=== PATIENT | female | born 1975 | race Caucasian/White ===

== ENCOUNTER → 2020-07-02 16:20 | Outpatient (CLI) | payer BC, SELFPAY ==
--- NOTE | ~2020-07-02 | MR_ITS ---
EXAMINATION: MR knee RT wo con DATE: 07/02/2020 17:53 INDICATION: Right knee pain. TECHNIQUE: Magnetic resonance imaging (MRI) of the right knee was performed without intravenous contr ast. Sequences included axial PD-weighted FS FSE, coronal PD-weighted FSE and PD-weighted FS FSE, sag ittal PD-weighted FSE, and sagittal T2-weighted FS FSE. COMPARISON: Right knee MRI 12/13/2017 FINDINGS: Medial compartment: Medial meniscus is normal. There is cartilage surface irregularity of femoral condyle involving the c entral articular surface. There is cartilage surface irregularity of tibial condyle involving the boy tral articular surface. Lateral compartment: Lateral meniscus is normal. Lateral compartment cartilage is normal. Patellofemoral compartment: There is deep partial thickness cartilage loss of patellar medial and lateral facets with mild subcho ndral edema-like marrow signal intensity. There is cartilage surface irregularity of trochlea. Ligaments and tendons: Anterior cruciate ligament is normal. There is a partial tear of posterior cruciate ligament. Medial collateral ligament is normal. There are changes of prior sprain of fibular collateral ligament leonel cterized by increased signal intensity proximally. There is mild patellar tendinopathy. Fluid: There is a small knee joint effusion. There is trace fluid in a Haddad's cyst. IMPRESSION: 1. Moderate chondrosis of patellofemoral compartment and mild chondrosis of medial compartment. 2. Partial tear of posterior cruciate ligament. 3. Small knee joint effusion. Reviewed, dictated and finalized at location A. ICE EDUCATOR IMPRESSION: 1. Moderate chondrosis of patellofemoral compartment and mild chondrosis of med ial compartment. 2. Partial tear of posterior cruciate ligament. 3. Small knee joint effusion.
== END ==
DX: M25.461 Effusion, right knee (principal); S83.521A Sprain of posterior cruciate ligament of right knee, initial encounter; X58.XXXA Exposure to other specified factors, initial encounter
CPT/HCPCS: 73721

== ENCOUNTER → 2020-10-29 09:50 | Outpatient (CLI) | payer BC, SELFPAY ==
--- NOTE | ~2020-10-29 | CT_ITS ---
EXAMINATION: CT abdomen pelvis w con EXAM DATE: 10/29/2020 10:20 INDICATION: Right lower quadrant tenderness / hematochezia. TECHNIQUE: Spiral CT of the abdomen and pelvis was performed following intravenous injection of 100 m L Omnipaque 350. Axial, coronal and sagittal images of the abdomen and pelvis were reviewed. The do se-length product (DLP) for this examination was 661.26 mGy-cm. The exposure was tailored according to patient size (auto mA exposure control), and iterative reconstruction (ASIR) was used as additiona l dose reduction technique. There is no prior study for comparison. FINDINGS: The liver, spleen, adrenal glands and pancreas are unremarkable. Gallbladder not identifie d, patient likely has had cholecystectomy. Portal and splenic veins are patent. Kidneys enhance sym metrically. There is no hydronephrosis. The uterus is unremarkable. The bladder is unremarkable. There is no retroperitoneal or pelvic lymphadenopathy. The appendix is not positively visualized, possible appendectomy. There is no pericecal inflammatory change to suggest appendicitis. The stomach and small bowel are unremarkable. There is moderate am ount of colonic stool. No free intraperitoneal gas. The heart is normal in size. There are no pe ricardial or pleural effusions. The lung bases are unremarkable. There are no osteoblastic or osteo lytic lesions identified. IMPRESSION: Moderate amount of colonic stool. Reviewed, dictated and finalized at location B.
== END ==
PROVIDERS: Visit Provider Nurse Practitioner
DX: R10.31 Right lower quadrant pain (principal); K92.1 Melena
CPT/HCPCS: 74177; Q9967

== ENCOUNTER 2021-07-09 13:26 | Outpatient (CLI) | payer BC, SELFPAY ==
--- NOTE | 2021-07-09 13:41 | ECG_ITS ---
Measurements Intervals [place] Rate: 65 P: 65 HI: 146 QRS: 60 QRSD: 92 T: 38 QT: 377 QTc: 394 Interpretive Statements SINUS RHYTHM WITH SINUS ARRHYTHMIA NORMAL ECG NO PREVIOUS ECG AVAILABLE FOR COMPARISON Electronically Signed On 07-09-2021 16:20:17 CDT by Delvin Treviño M.D.
== END 2021-07-09 13:27 | disposition home or self-care (01) ==
LOC: ANHSURGERY 13:29
PROVIDERS: PCP Nurse Practitioner Adult Health; Visit Provider Obstetrics & Gynecology
DX: N92.6 Irregular menstruation, unspecified (principal); E78.00 Pure hypercholesterolemia, unspecified
CPT/HCPCS: 36415; 86850; 86900; 86901; 93005

== ENCOUNTER 2021-07-14 00:15 | Day surgery (SDC) | payer BC, SELFPAY ==
[2021-07-02 16:31] VITALS: BMI 27.9
--- NOTE | 2021-07-02 17:25 | PC.NURSE ---
Report to the Outpatient Waiting Room, entrance under the green pavilion located off [facility], at 1000 on 07-14-21. OR Time: 1200. - You and your visitor will be asked a series of questions to screen for COVID 19 for your protection. - A mask is required within the hospital. Preoperative COVID Testing Requirements: No COVID Test needed if: (proof is required; if not received patient will have Rapid Test prior to entry) - Patient has received COVID Vaccine at least 14 days prior to procedure date or - Patient has positive COVID test result within last 90 days of surgery date. COVID Test needed if above criteria is not met If not COVID vaccinated a COVID test must be conducted within 72 hours of surgery and patient is asked to isolate self from time of testing until procedure. You will go to the [email or web address] for your COVID testing. The [email or web address] site is located at the corner of [address] [facility]. You will only be called if COVID results are positive and your surgeon may reschedule your elective surgery date. Patients may have clear liquids (water, carbonated beverages, clear teas, apple juice) until 3 hours prior to surgery with a maximum of 20 ounces. 0900 - No food from midnight until time of surgery - Infants may have breast milk until 4 hours before surgery, formula 6 hours prior to surgery. - Children will be allowed to drink immediately following surgery. If applicable, please bring a bottle or sippy cup to assist with drinking. Juice, water, soda, and popsicles are readily available. For infants on formula, please bring formula the day of surgery. Pacifiers are allowed. Take the following medications with a SIP of water the morning of surgery: Citalopram Medications to discontinue per physician: vitamins and supplements Date to take last dose: 07-11-21 Please no make-up, nail angolan, hairspray, perfume, deodorant, or body powder the day of surgery. No jewelry (including any body piercings) or valuables the day of surgery, leave them at home. Please take a shower or bath the night before, or the morning of, surgery with an antibacterial soap. Wear comfortable, loose fitting clothing. Children are encouraged to wear pajamas. - Jewelry must be removed prior to entering the operating room. Rings and piercings that are not removed may be cut off. - The hospital will not accept responsibility for valuables. - Please leave all valuables, including medications, at home the day of surgery. If you are going home after surgery, a licensed mail truck driver must drive you home. - NO public transportation without another adult. - We recommend that an adult stay with you for 24 hours following discharge. - We also recommend that you do not drive, make important decision, drink alcoholic beverages, or take any drugs that were not prescribed by your health care provider for at least 24 hours after your discharge time. For Pediatric surgeries, we recommend two adults accompany the child home (only one inside the building at this time). One visitor will be allowed to accompany the patient into the hospital. Patients visitor will be instructed to remain with patient at all times or leave the building. We will allow the visitor to come back to the postoperative area when patient is ready. Follow any additional instructions given to you from your surgeon. Telephone instructions given to Betzy Elder and asked if any additional questions and then verbalized understanding. Patient advised to call surgeon office or pre surgery nurse liaison [phone] if any additional questions.
[2021-07-14] VITALS (11 sets, daily range): BP systolic 104–132; BP diastolic 60–83; PULSE 67–92; RESP 10–18; TEMP 36.2–36.9; O2SAT 92–100
[2021-07-14] MEDS: LACTATED RINGERS 1,000 ML 30 ML IV CONT ×2 (10:50→14:05)
[2021-07-14] MEDS: ACETAMINOPHEN 500 MG TABLET 1000 MG PO (10:51)
[2021-07-14] MEDS: KETOROLAC 15 MG/ML VIAL (*BKC) IV PUSH (10:51)
--- NOTE | 2021-07-14 11:18 | P.PNAN_ITS ---
Anes - Initial Pre Proc Eval Procedure: Operation Date: 07/14/21 12:00 Proposed Procedures p Robotic Assisted Total Vaginal Hysterectomy with Bilateral Salpingectomy - Constantin Naranjo MD Date/Time: 07/14/21 11:18 Surgeon: Constantin Naranjo MD Pre Op Diagnosis: failed ablation,irregular bleeding,dysmenorrhea, Patient Data Age: 45 Gender: F Height: 1.78 m Weight: 88.8 kg Last Vital Signs Temp 36.5 C 07/14/21 10:33 Pulse 74 07/14/21 10:33 Resp 18 07/14/21 10:33 BP 132/77 07/14/21 10:33 Pulse Ox 100 07/14/21 10:33 Allergies Allergy/AdvReac Type Severity Reaction Status Date / Time levofloxacin [From Levaquin] Allergy Intermediate Dyspnea / Verified 07/14/21 10:56 SOB lisinopril Allergy Intermediate Chest Pain Verified 07/14/21 10:56 Penicillins Allergy Unknown Unknown Verified 07/14/21 10:56 Home Medications Medication Instructions Recorded Confirmed Type atorvastatin 20 mg PO HS 07/02/21 07/14/21 History cholecalciferol (vitamin D3) 100 mcg PO DAILY 07/02/21 07/14/21 History [Vitamin D3] citalopram 40 mg PO DAILY 07/02/21 07/14/21 History qwsjahaoxyja-bmy-pfvp-FA-vit K 1 tablet PO DAILY 07/02/21 07/14/21 History [Adults Multivitamin] Patient hx anesthesia problems: post op nausea/vomiting Family hx anesthesia problems: none Results Review: All pre-operative results and documents have been reviewed as part of the pre-operative evaluation. [facility] Past Medical History Medical History Anxiety Depression Hyperlipidemia SVT (supraventricular tachycardia) Surgical History Surgical History S/P ablation operation for arrhythmia Family History Family History Mother Depression Family history of elevated blood lipids Other Hypertension Social History Social History Smoking packs per day: 0.5 Smoking cigarettes per day: 10.0 Years smoked: 12 Smoking pack-years: 6.00 Smoking status: Former smoker Tobacco type: cigarettes and e-cigarettes/vaping Smoking end date: 04/24/17 Alcohol intake: former Alcohol use details: socially Substance use: current Substance use type: marijuana Last use: t-1 Living arrangements: with family Spiritual care concerns: No Anes - Eval Final PreProcedure Day of Procedure 07/14/21 11:18 Patient weight: overweight Heart: regular rate and rhythm Lungs: clear to auscultation Airway: Mallampati scale class II Neurological: alert and oriented Last oral intake: >/= 8 hours ASA classification: III Emergent: no Anesthetic plan: proceed Anesthesia type and monitoring: general ETT and standard monitoring Results Review: All pre-operative results and documents have been reviewed as part of the pre-operative evaluation. Informed Consent: The patient's anesthetic plan and its attendant risks and benefits were discussed with the patient/family/POA. Questions were solicited and answers provided to the satisfaction of the patient/family/POA.
--- NOTE | 2021-07-14 11:54 | PM.IMHP ---
H&P: HPI History of Present Illness Date/Time: 07/14/21 11:54 45 y/o who has had an endometrial ablation. Her has had a vasectomy. She had gone several years with no bleeding, but now has monthly menses. The flow is light, but the cramping has been worsening. Ultrasound exam shows an inhomogeneous myometrium. She desires definitive management with hysterectomy. Chief Complaint: Pain Review of Systems Review of Systems: All systems reviewed & are unremarkable except as noted in HPI and below PMFSH Past Medical History Medical History (Updated 07/14/21 @ 11:57 by Constantin Naranjo MD) Anxiety Depression Hyperlipidemia SVT (supraventricular tachycardia) Surgical History Surgical History S/P ablation operation for arrhythmia Family History Family History Mother Depression Family history of elevated blood lipids Other Hypertension Social History Social History Smoking packs per day: 0.5 Smoking cigarettes per day: 10.0 Years smoked: 12 Smoking pack-years: 6.00 Smoking status: Former smoker Tobacco type: cigarettes and e-cigarettes/vaping Smoking end date: 04/24/17 Alcohol intake: former Alcohol use details: socially Substance use: current Substance use type: marijuana Last use: t-1 Living arrangements: with family Spiritual care concerns: No Meds Home Medications and Allergies Home Medications Medication Instructions Recorded Confirmed Type atorvastatin 20 mg PO HS 07/02/21 07/14/21 History cholecalciferol (vitamin D3) 100 mcg PO DAILY 07/02/21 07/14/21 History [Vitamin D3] citalopram 40 mg PO DAILY 07/02/21 07/14/21 History zdmbhfhibuiy-hpf-wmhl-FA-vit K 1 tablet PO DAILY 07/02/21 07/14/21 History [Adults Multivitamin] Allergies Allergy/AdvReac Type Severity Reaction Status Date / Time levofloxacin [From Levaquin] Allergy Intermediate Dyspnea / Verified 07/14/21 10:56 SOB lisinopril Allergy Intermediate Chest Pain Verified 07/14/21 10:56 Penicillins Allergy Unknown Unknown Verified 07/14/21 10:56 Vital Signs Vital Signs - 24 hr 07/14/21 10:33 Temperature 36.5 C Pulse Rate 74 Respiratory Rate 18 Blood Pressure 132/77 Pulse Oximetry 100 Exam Const: Orientation/consciousness: patient oriented x3 Other: Well-developed, well-nourished female in no acute distress. Neck: Thyroid: thyroid normal Lymphatic: no lymphadenopathy noted (in neck, axilla or inguinal nodes) Resp: Effort & Inspection: normal respiratory effort Auscultation: clear to auscultation bilaterally Cardio: Rate: regular rate Rhythm: regular rhythm Heart sounds: S1 normal heart sound present and S2 normal heart sound present GI: Other: ABD: Soft, nontender, nondistended. No guarding or rebound tenderness. No hepatosplenomegaly. : General: Yes no CVA tenderness Other: External genitalia: normal female hair distribution, without lesion. Urethral meatus: no lesion, non prolapsed. Bladder: no mass, nontender Vagina: well-estrogenized, without lesion or discharge. No cystocele or rectocele. Cervix: no lesion or discharge. Uterus: small, anteverted, freely mobile, nontender Adnexa: no mass or tenderness. Anus/perineum: no lesions, nontender Back/Spine/Pelvis: Back: no CVA tenderness Skin: General skin exam: normal color and no rashes or lesions noted Neuro: General: patient oriented x3 Extrem: Other: Extremities: nontender with no edema Psych: Mental Status: mental status grossly normal Affect: normal affect Assessment and Plan Assessment and plan (1) Dysmenorrhea: Code(s): N94.6 - Dysmenorrhea, unspecified Status: Acute Assessment and Plan: A: Dysmenorrhea, worsening, refractory to conservative management. P: We have reviewed medical as well as s
--- NOTE | 2021-07-14 12:08 | WPDHPUPDATE1 ---
History and Physical Update Update Date/Time: 07/14/21 12:08 History and Physical has been reviewed, including an updated exam of the patient. There are NO changes in the patient's condition. Risks, benefits, and alternatives have been discussed and questions answered. Patient agrees to proceed with procedure.
[2021-07-14] MEDS: ceFAZolin 2 GM/D5W 50 ML 2 GM/50 ML BAG IVPB (12:13)
[2021-07-14] MEDS: SCOPOLAMINE 1.5 MG PATCH TRANSDERM (12:52)
--- NOTE | 2021-07-14 13:55 | P.OP_ITS ---
Procedure Note - Detailed Date of Procedure 07/14/21 Pre-op Diagnosis Metrorrhagia Dysmenorrhea Post-op Diagnosis Same Procedure Performed Robotic assisted total vaginal hysterectomy with bilateral salpingectomies Surgeon Constantin Naranjo MD Anesthesia General Findings Normal-appearing uterus, tubes and ovaries. Description of Procedure The patient was taken to the operating room where general endotracheal anesthesia was administered. She was prepared and draped in the usual sterile fashion in the dorsal lithotomy position. The bladder was drained with Keen catheter. The cervix was visualized and the anterior lip was grasped using a single-tooth tenaculum. The cervix was gently dilated using Hegar dilators. The LAZ 2 uterine manipulator was then placed and the tenaculum was removed. Gloves were changed and attention was turned to the abdomen. A supraumbilical skin incision was made with the scalpel. The Veress needle was advanced and pneumoperitoneum was administered using carbon dioxide gas. The bladeless trocar was then advanced. Intraperitoneal placement was confirmed using the laparoscope. Lateral ports and an sales operations assistant port were all placed using bladeless trocars under direct laparoscopic visualization. She was placed in Trendelenburg position and the patient cart was docked. I assumed the console. The ureters were visualized bilaterally. The round ligament on the right was divided. The Fallopian tube was dissected free of the right ovary. The uteroovarian ligament was divided. The broad ligament was divided, skeletonizing the uterine artery on the right. The bladder was reflected away. The left side was similarly dissected. Colpotomy was performed circumferentially. The specimen was removed and passed off to be sent to pathology. The vaginal cuff was reapproximated using 0 Vicryl in interrupted [id number] fashion. The pelvis was irrigated copiously using warmed normal saline. Rigorous hemostasis was assured. HemaDerm was applied to the vaginal cuff. The pedicles were inspected once again. The ports were then withdrawn and the gas was allowed to escape. The skin incisions were reapproximated using 4 0 Monocryl in interrupted subcuticular fashion. Dermaflex was applied externally. Sponge, lap, needle and instrument counts were correct. The patient was awakened and taken to the recovery room in stable condition. I was present and scrubbed through the entire procedure. Implants None Estimated Blood Loss 50 Drains Yes (keen) Packing No Pathology Yes (uterus, cervix, bilateral Fallopian tubes) Complications None Condition Stable Disposition PACU
--- NOTE | 2021-07-14 13:58 | PM.DS ---
DS: Admitting Diagnosis Discharge Date 07/15/21 Admitting Diagnosis Metrorrhagia Dysmenorrhea DS: Discharge Diagnosis Discharge Diagnosis (1) Pelvic pain: Code(s): R10.2 - Pelvic and perineal pain Status: Acute (2) Dysmenorrhea: Code(s): N94.6 - Dysmenorrhea, unspecified Status: Acute (3) Metrorrhagia: Code(s): N92.1 - Excessive and frequent menstruation with irregular cycle Status: Acute DS: Summary Hospital Course Hospital Course: Admitted to the hospital for scheduled surgery. See op note. Did well postoperatively and was able to go home on POD#1. DS: Data Data Completed and Pending Pending studies at discharge: Pending at discharge 07/14/21 13:26 Surgical [PTH] Routine Discharge Plan Discharge Patient Disposition: Home, Self-Care Discharge Instructions: Pelvic rest for six weeks. Call or return if temperature above 100.4? F, increased abdominal pain, increased vaginal bleeding or any new problems. Stand Alone Forms: General Discharge Instructions Follow-up/Referrals: Constantin Naranjo MD [Physician] - 2 Weeks Discharge Medications: New hydrocodone-acetaminophen 5-325 mg tablet 1 - 2 tablet PO Q6H PRN (Reason: pain) Qty: 30 RF: 0 Continued atorvastatin 20 mg tablet 20 mg PO HS RF: 0 citalopram 40 mg tablet 40 mg PO DAILY RF: 0 cholecalciferol (vitamin D3) [Vitamin D3] 50 mcg (2,000 unit) Tablet 100 mcg PO DAILY RF: 0 Discontinued Adults Multivitamin 18 mg iron-400 mcg-25 mcg Tablet 1 tablet PO DAILY RF: 0
[2021-07-14] MEDS: fentaNYL CITRATE INJ (*CRX) 100 MCG/2 ML VIAL 25 MCG IV PUSH ×2 (14:43→14:45)
[2021-07-14] MEDS: diphenhydrAMINE HCl INJ 50 MG/ML VIAL 25 MG IV PUSH (14:54)
--- NOTE | 2021-07-14 15:43 | PC.NURSE ---
Pt arrived on unit via bed and taken to room 289 unaccompanied. PT alert and awake and oriented to room 289 and surrounding area. PT introductions made and plan of care discussed per post op obgyn nurse surgery, pain management, daily care activities. PT received such instructions per one to one discussion and demonstrations. PT shows no barriers to learning at this time. PT verbalized understanding of such care.
[2021-07-14] MEDS: DEXTROSE 5%/0.45% SOD CHL 1,000 ML 125 ML IV CONT (16:35)
[2021-07-14] MEDS: DOCUSATE SODIUM 100 MG CAPSULE PO (16:35)
[2021-07-14] MEDS: SIMETHICONE 80 MG TAB.CHEW PO ×2 (16:35→19:40)
[2021-07-14] MEDS: IBUPROFEN 600 MG TABLET PO ×2 (16:36→22:22)
[2021-07-14] MEDS: HYDROcodone/acetaminophen (*CRX) 5-325 MG TABLET 1 TAB PO ×2 (16:36→19:39)
[2021-07-14] MEDS: ENOXAPARIN 40 MG/0.4 ML SYRINGE SUB-Q (19:40)
[2021-07-15] MEDS: SIMETHICONE 80 MG TAB.CHEW PO ×4 (00:46→11:38)
[2021-07-15] MEDS: HYDROcodone/acetaminophen (*CRX) 10-325 MG TABLET 1 TAB PO ×4 (00:51→11:37)
[2021-07-15] MEDS: IBUPROFEN 600 MG TABLET PO ×2 (04:42→11:37)
[2021-07-15 04:50] VITALS: BP 118/70; PULSE 65; RESP 18; TEMP 36.7; O2SAT 99
[2021-07-15 05:33] LABS: Basophils Absolute Auto 0.1 K/mm3 (0.0-0.1); Basophils Percent Auto 0.3 % (0.2-1.2); Eosinophils Absolute Auto 0.1 K/mm3 (0-0.3); Eosinophils Percent Auto 0.6 % (0-4.4); Hematocrit 36.5 % (37.0-47.0); Hemoglobin 12.4 g/dL (12.0-15.0); Immature Granulocyte Absolute 0.08 K/mm3 (0.00-0.031); Immature Granulocyte Percent A 0.5 % (0-0.5); Lymphocytes Absolute Auto 1.82 K/mm3 (0.9-3.2); Lymphocytes Percent Auto 11.5 % (18.3-44.2); Mean Corpuscular Hemoglobin 30.5 pg (26-34); Mean Corpuscular Volume 89.7 fl (80-100); Monocytes Absolute Auto 0.8 K/mm3 (0.1-0.6); Monocytes Percent Auto 5.1 % (2.6-8.5); Neutrophils Absolute Auto 12.9 K/mm3 (1.3-6.7); Platelet Count Result 304 k/mm3 (150-375); Red Blood Count 4.07 M/mm3 (4.2-5.4); Red Cell Distribution Width 12.6 % (11.5-14.5); White Blood Count 15.8 K/mm3 (4.5-10.0)
[2021-07-15 07:15] VITALS: PULSE 68; RESP 18; O2SAT 98
[2021-07-15 07:45] VITALS: BP 115/76; PULSE 68; RESP 18; TEMP 36.4; O2SAT 98
[2021-07-15] MEDS: CITALOPRAM HYDROBROMIDE 20 MG TABLET 40 MG PO (08:12)
[2021-07-15] MEDS: DOCUSATE SODIUM 100 MG CAPSULE PO (08:13)
--- NOTE | 2021-07-15 08:55 | PM.GYNPNOP ---
CASINO CASHIER - A/P Assessment and plan (1) Metrorrhagia: Code(s): N92.1 - Excessive and frequent menstruation with irregular cycle Status: Acute Assessment and Plan: A: POD#1, doing well. P: Home to f/u 2 weeks. (2) Dysmenorrhea: Code(s): N94.6 - Dysmenorrhea, unspecified Status: Acute (3) Pelvic pain: Code(s): R10.2 - Pelvic and perineal pain Status: Acute Postoperative Procedures: Procedures Operation Date: 07/14/21 12:00 Actual Procedure Side Surgeon p Robotic Assisted Total Vaginal Hysterectomy with Bilateral Salpingectomy Constantin Naranjo MD Time Spent With Patient Time with patient: less than 15 minutes CASINO CASHIER- PN:Subj Post-Op Subjective Date/time seen: 07/15/21 08:55 Interval history: Pain OK. Tolerating diet. Voiding. Would like to go home. Exam Narrative: AVSS I/O OK ABD soft, nontender. Incisions c/d/i. EXT nontender CASINO CASHIER - PN: Obj Data Vital Signs Vital Signs: Vital Signs - 24 hr 07/14/21 10:33 07/14/21 14:05 07/14/21 14:20 Temperature 36.5 C 36.5 C Pulse Rate 74 84 72 Respiratory Rate 18 14 12 Blood Pressure 132/77 129/83 119/78 Pulse Oximetry 100 100 97 07/14/21 14:35 07/14/21 14:50 07/14/21 15:05 Temperature Pulse Rate 73 79 77 Respiratory Rate 12 12 10 L Blood Pressure 109/71 116/74 109/69 Pulse Oximetry 97 97 96 07/14/21 15:20 07/14/21 15:35 07/14/21 16:00 Temperature 36.2 C L Pulse Rate 67 77 79 Respiratory Rate 12 10 L 18 Blood Pressure 110/68 107/69 104/60 Pulse Oximetry 92 92 100 07/14/21 20:00 07/14/21 23:35 07/15/21 04:50 Temperature 36.5 C 36.9 C 36.7 C Pulse Rate 68 92 65 Respiratory Rate 18 18 18 Blood Pressure 130/81 130/77 118/70 Pulse Oximetry 98 97 99 07/15/21 07:45 Temperature 36.4 C L Pulse Rate 68 Respiratory Rate 18 Blood Pressure 115/76 Pulse Oximetry 98 Intake/Output Intake/Output: Intake & Output 07/12/21 07/13/21 07/14/21 07/15/21 23:59 23:59 23:59 23:59 Intake Total 1500 1100 Output Total 975 950 Balance 525 150 Meds/Results Medications: Active Medications Generic Name Dose Route Start Last Admin Trade Name Freq PRN Reason Stop Dose Admin Hydrocodone Bitart/Acetaminophen 1 tab 07/14/21 15:42 07/14/21 19:39 Hydrocodone/Acetaminophen (*Crx) 5-325 Mg Tablet PO 1 tab Q3H PRN Administration Pain Rated 5 or Less Hydrocodone Bitart/Acetaminophen 1 tab 07/14/21 15:42 07/15/21 08:13 Hydrocodone/Acetaminophen (*Crx) 10-325 Mg Tablet PO 1 tab Q3H PRN Administration Pain Rated 6 or Greater Citalopram Hydrobromide 40 mg 07/15/21 09:00 07/15/21 08:12 Citalopram Hydrobromide 20 Mg Tablet PO 40 mg DAILY HARJIT Administration Docusate Sodium 100 mg 07/14/21 17:00 07/15/21 08:13 Docusate Sodium 100 Mg Capsule PO 100 mg BID HARJIT Administration Enoxaparin Sodium 40 mg 07/14/21 21:00 07/14/21 19:40 Enoxaparin 40 Mg/0.4 Ml Syringe SUB-Q 40 mg HS HARJIT Administration Dextrose/Sodium Chloride 1,000 mls @ 125 mls/hr 07/14/21 15:42 07/14/21 16:35 Dextrose 5% Sodium Chloride 0.45% IV CONT 125 mls/hr .Q8H HARJIT Administration Ibuprofen 600 mg 07/14/21 15:42 07/15/21 04:42 Ibuprofen 600 Mg Tablet PO 600 mg Q6H PRN Administration Cramping Metoclopramide HCl 10 mg 07/14/21 15:42 Metoclopramide Hcl Inj 10 Mg/2 Ml Vial IV PUSH Q6H PRN Nausea Morphine Sulfate 4 mg 07/14/21 15:42 Morphine Sulfate (*Crx) 4 Mg/Ml Inj IV PUSH Q4H PRN Pain Rated 7-10 Naloxone HCl 0.1 mg 07/14/21 15:42 Naloxone Hcl 0.4 Mg/Ml Vial IV PUSH Q2M PRN Respiratory rate less than 10 Ondansetron HCl 4 mg 07/14/21 15:42 Ondansetron Inj 4 Mg/2 Ml Vial IV PUSH Q6H PRN Nausea Simethicone 80 mg 07/14/21 15:42 07/15/21 08:13 Simethicone 80 Mg Tab.Chew PO 80 mg Q2H PRN Administration Gas Labs CBC & Chem 7: 07/15/21 04:40 Labs: Lab
== END 2021-07-15 12:25 | disposition home or self-care (01) ==
LOC: ANHSURGERY 13:59 → ANHOB2 19:43
PROVIDERS: PCP Nurse Practitioner Adult Health; Visit Provider Obstetrics & Gynecology
PROC: (CPT 58552; principal; 2021-07-14 12:00)
DX: N92.1 Excessive and frequent menstruation with irregular cycle (principal); N94.6 Dysmenorrhea, unspecified; N73.6 Female pelvic peritoneal adhesions (postinfective); N83.8 Other noninflammatory disorders of ovary, fallopian tube and broad ligament; R10.2 Pelvic and perineal pain; E78.5 Hyperlipidemia, unspecified; F41.8 Other specified anxiety disorders; Z87.891 Personal history of nicotine dependence; F12.90 Cannabis use, unspecified, uncomplicated
CPT/HCPCS: 58552; S2900; 36415; 85025; 88307; 99199; A9270; J0690; J1100; J1200; J1650; J1885; J2250; J2270; J2405; J2704; J3010; J7030; J7120

== ENCOUNTER → 2022-04-08 10:23 | Outpatient (CLI) | payer BC, SELFPAY ==
--- NOTE | ~2022-04-08 | US_ITS ---
EXAMINATION: US pelvic complete w TV DATE: 04/08/2022 10:57 INDICATION: Pelvic pain Comparison:No prior studies for comparison. TECHNIQUE: Multiple transabdominal and endovaginal sonographic images of the pelvis performed. FINDINGS: The uterus is surgically absent. The right ovary measures 3.1 x 2 x 1.7 cm and the left ova ry measures 2.1 x 1.9 x 1.9 cm. There are small follicles in each ovary. Normal doppler signal in teri th ovaries. There is no free fluid in the pelvis. There are no abnormal masses seen on either side. IMPRESSION: 1. Unremarkable pelvic ultrasound. Reviewed, dictated and finalized at location B. ETBALL ASSEMBLER
== END ==
PROVIDERS: PCP Nurse Practitioner Adult Health; Visit Provider Obstetrics & Gynecology
DX: R10.2 Pelvic and perineal pain (principal)
CPT/HCPCS: 76830; 76856

== ENCOUNTER 2023-05-29 10:17 | Outpatient (CLI) | payer BC, SELFPAY ==
--- NOTE | 2023-05-29 10:25 | ECG_ITS ---
Measurements Intervals Nelson Rate: 73 P: 59 NM: 150 QRS: 45 QRSD: 92 T: 30 QT: 367 QTc: 406 Interpretive Statements SINUS RHYTHM NORMAL ELECTROCARDIOGRAM COMPARED TO ECG 07/09/2021 13:48:49 NO SIGNIFICANT CHANGES Electronically Signed On 05-29-2023 16:52:53 [employer] by Delvin Treviño M.D.
== END 2023-05-29 10:18 | disposition home or self-care (01) ==
LOC: ANHSURGERY 10:21
PROVIDERS: PCP Nurse Practitioner Family; Visit Provider Obstetrics & Gynecology
DX: N83.201 Unspecified ovarian cyst, right side (principal); Z86.79 Personal history of other diseases of the circulatory system; Z01.818 Encounter for other preprocedural examination
CPT/HCPCS: 36415; 86850; 86900; 86901; 93005

== ENCOUNTER 2023-05-31 01:16 | Day surgery (SDC) | payer BC, SELFPAY ==
[2023-05-26 11:04] VITALS: BMI 31.6
--- NOTE | 2023-05-26 11:33 | PC.NURSE ---
Report to the Outpatient Waiting Room, entrance under the green pavilion located off [facility], at time __10:00AM on date __05/31/23 . Planned Procedure Time: _12:00PM . Time changes happen often and if your time is changed the preop area will call you the afternoon before. - You and your visitor will be asked to self-screen and do not enter if you have any COVID symptoms. - A mask is optional within the hospital at this time. Patients may have clear liquids (water, carbonated beverages, clear teas, apple juice) until 3 hours prior to surgery with a maximum of 20 ounces. - No food from midnight until time of surgery. Take the following medications with a SIP of water the morning of surgery: __BUPROPION, CITALOPRAM, MACROBID. ZOFRAN NEEDED FOR NAUSEA. DO NOT STOP ANY OF YOUR OTHER PRESCRIPTION MEDICATIONS PRIOR TO SURGERY ?EXCEPT THE FOLLOWING Medications to discontinue per physician ____HOLD ALL VITAMINS/SUPPLEMENTS 3 DAYS PRE-OP PER ANESTHESIA Date to take last dose 05/27/23 Please no make-up, nail malian, hairspray, perfume, deodorant, or body powder the day of surgery. No jewelry (including any body piercings) or valuables the day of surgery, leave them at home. Please take a shower or bath the night before, or the morning of, surgery with an antibacterial soap. Wear comfortable, loose fitting clothing. - Jewelry must be removed prior to entering the operating room. Rings and piercings that are not removed may be cut off. - The hospital will not accept responsibility for valuables. - Please leave all valuables, including medications, at home the day of surgery. If you are going home after surgery, a licensed motor coach driver must drive you home. - NO public transportation without another adult if you receive anesthesia. - We recommend that an adult stay with you for 24 hours following discharge. - We also recommend that you do not drive, make important decision, drink alcoholic beverages, or take any drugs that were not prescribed by your health care provider for at least 24 hours after your discharge time. Follow any additional instructions given to you from your surgeon. If you or anyone in your household have experienced Covid symptoms in the past week, please notify your surgeon or the nurse liaison at the phone number below for possible testing. Telephone instructions given to ____PATIENT and asked if any additional questions and then verbalized understanding. Patient advised to call surgeon office or pre surgery nurse liaison [phone] if any additional questions.
[2023-05-31] VITALS (10 sets, daily range): BP systolic 110–142; BP diastolic 80–98; PULSE 72–94; RESP 12–18; TEMP 36.1–36.3; O2SAT 94–98
[2023-05-31] MEDS: LACTATED RINGERS 1,000 ML 30 ML IV CONT ×2 (10:40→13:28)
[2023-05-31] MEDS: ACETAMINOPHEN 500 MG TABLET 1000 MG PO (10:40)
[2023-05-31] MEDS: KETOROLAC 15 MG/ML VIAL (*BKC) IV PUSH (10:43)
[2023-05-31] MEDS: SCOPOLAMINE 1 MG PATCH 1 PATCH TRANSDERM (10:58)
--- NOTE | 2023-05-31 11:00 | WPDANESEPPF ---
Anes - Initial Pre Proc Eval Procedure: Operation Date: 05/31/23 12:00 Proposed Procedures p Laparoscopic Right Salpingo-oophorectomy - Constantin Naranjo MD Date/Time: 05/31/23 11:00 Surgeon: Constantin Naranjo MD Pre Op Diagnosis: Rt Ovarian Cyst, Pelvic Pain Patient Data Age: 47 Gender: F Height: 1.78 m Weight: 97.6 kg Last Vital Signs Temp 36.1 C L 05/31/23 10:19 Pulse 84 05/31/23 10:19 Resp 18 05/31/23 10:19 BP 142/98 H 05/31/23 10:19 Pulse Ox 97 05/31/23 10:19 O2 Del Method Room Air 05/31/23 10:19 Allergies Allergy/AdvReac Type Severity Reaction Status Date / Time lisinopril Allergy Intermediate Chest Pain Verified 05/31/23 10:24 Penicillins Allergy Unknown Unknown Verified 05/31/23 10:24 levofloxacin [From Levaquin] AdvReac Intermediate Dyspnea / Verified 05/31/23 10:24 SOB Home Medications Medication Instructions Recorded Confirmed Type atorvastatin 20 mg tablet 20 mg PO HS 07/02/21 05/31/23 History cholecalciferol (vitamin D3) 50 100 mcg PO DAILY 07/02/21 05/31/23 History mcg (2,000 unit) tablet (Vitamin D3) citalopram 40 mg tablet 40 mg PO QAM 07/02/21 05/31/23 History bupropion HCl 150 mg 24 hr tablet, 150 mg PO QAM 05/26/23 05/31/23 History extended release hydrocortisone 2.5 % topical cream 1 applic topical BID 05/26/23 05/31/23 History melatonin 10 mg tablet 10 mg PO HS PRN Insomnia 05/26/23 05/31/23 History nitrofurantoin 100 mg PO Q12H 05/26/23 05/31/23 History monohydrate/macrocrystals 100 mg capsule (Macrobid) omeprazole 20 mg capsule,delayed 40 mg PO QAM 05/26/23 05/31/23 History release ondansetron HCl 8 mg tablet 8 mg PO Q6-8H PRN Nausea 05/26/23 05/31/23 History Patient hx anesthesia problems: none Family hx anesthesia problems: none Results Review: All pre-operative results and documents have been reviewed as part of the pre-operative evaluation. FOR[facility]LY [facility] Past Medical History Medical History Anxiety Depression Hyperlipidemia SVT (supraventricular tachycardia) Surgical History Surgical History S/P ablation operation for arrhythmia Family History Family History Mother Depression Family history of elevated blood lipids Other Hypertension Social History Social History Smoking packs per day: 0.5 Smoking cigarettes per day: 10.0 Years smoked: 6 Smoking pack-years: 3.00 Smoking status: Current every day smoker Tobacco type: cigarettes and e-cigarettes/vaping Second hand tobacco smoke exposure: No Smoking end date: 10/22/00 Additional smoking assessment comments: QUIT CIGARETTES 2000, VAPING DAILY CURRENTLY Alcohol intake: former Alcohol use details: STOPPED DRINKING 10/2022 Substance use: current Substance use type: marijuana Other substance usage details: DAILY MARIJUANA Last use: t-1 Living arrangements: with family Additional living arrangements comments: HUSB AND CHILDREN Spiritual care concerns: No Anes - Eval Final PreProcedure Day of Procedure 05/31/23 11:00 Patient weight: obese Heart: regular rate and rhythm Lungs: clear to auscultation Airway: Mallampati scale class II Neurological: alert and oriented Last oral intake: >/= 8 hours ASA classification: III Emergent: no Anesthetic plan: proceed Anesthesia type and monitoring: general ETT and standard monitoring Results Review: All pre-operative results and documents have been reviewed as part of the pre-operative evaluation. Informed Consent: The patient's anesthetic plan and its attendant risks and benefits were discussed with the patient/family/POA. Questions were solicited and answers provided to the satisfaction of the patient/family/POA.
[2023-05-31] MEDS: fentaNYL CITRATE INJ (*CRX) 100 MCG/2 ML VIAL 50 MCG IV PUSH (11:12)
--- NOTE | 2023-05-31 12:24 | PM.IMHP ---
H&P: HPI History of Present Illness Date/Time: 05/31/23 12:24 Chief Complaint: Pain Narrative: 47 y/o who has had a hysterectomy. She developed right sided abdominal pain while taking a bowel prep for a colonoscopy. CT showed a 5.7 cm right adnexal cyst. No ultrasound was performed. She continues to have pain. She would like laparoscopic RSO. Review of Systems Review of Systems: All systems reviewed & are unremarkable except as noted in HPI and below PMFSH Past Medical History Medical History (Updated 05/31/23 @ 12:27 by Constantin Naranjo MD) Anxiety Depression Hyperlipidemia Pelvic pain SVT (supraventricular tachycardia) Surgical History Surgical History History of 2 sections History of hysterectomy for benign disease S/P ablation operation for arrhythmia Family History Family History Mother Depression Family history of elevated blood lipids Other Hypertension Social History Social History Smoking packs per day: 0.5 Smoking cigarettes per day: 10.0 Years smoked: 6 Smoking pack-years: 3.00 Smoking status: Current every day smoker Tobacco type: cigarettes and e-cigarettes/vaping Second hand tobacco smoke exposure: No Smoking end date: 10/22/00 Additional smoking assessment comments: QUIT CIGARETTES 2000, VAPING DAILY CURRENTLY Alcohol intake: former Alcohol use details: STOPPED DRINKING 10/2022 Substance use: current Substance use type: marijuana Other substance usage details: DAILY MARIJUANA Last use: t-1 Living arrangements: with family Additional living arrangements comments: HUSB AND CHILDREN Spiritual care concerns: No Meds Home Medications and Allergies Home Medications Medication Instructions Recorded Confirmed Type atorvastatin 20 mg tablet 20 mg PO HS 07/02/21 05/31/23 History cholecalciferol (vitamin D3) 50 100 mcg PO DAILY 07/02/21 05/31/23 History mcg (2,000 unit) tablet (Vitamin D3) citalopram 40 mg tablet 40 mg PO QAM 07/02/21 05/31/23 History bupropion HCl 150 mg 24 hr tablet, 150 mg PO QAM 05/26/23 05/31/23 History extended release hydrocortisone 2.5 % topical cream 1 applic topical BID 05/26/23 05/31/23 History melatonin 10 mg tablet 10 mg PO HS PRN Insomnia 05/26/23 05/31/23 History nitrofurantoin 100 mg PO Q12H 05/26/23 05/31/23 History monohydrate/macrocrystals 100 mg capsule (Macrobid) omeprazole 20 mg capsule,delayed 40 mg PO QAM 05/26/23 05/31/23 History release ondansetron HCl 8 mg tablet 8 mg PO Q6-8H PRN Nausea 05/26/23 05/31/23 History Allergies Allergy/AdvReac Type Severity Reaction Status Date / Time lisinopril Allergy Intermediate Chest Pain Verified 05/31/23 10:24 Penicillins Allergy Unknown Unknown Verified 05/31/23 10:24 levofloxacin [From Levaquin] AdvReac Intermediate Dyspnea / Verified 05/31/23 10:24 SOB Vital Signs Vital Signs - 24 hr 05/31/23 10:19 Temperature 36.1 C L Pulse Rate 84 Respiratory Rate 18 Blood Pressure 142/98 H Pulse Oximetry 97 Oxygen Delivery Room Air Exam Const: Orientation/consciousness: patient oriented x3 Other: Well-developed, well-nourished female in no acute distress. Neck: Thyroid: thyroid normal Lymphatic: no lymphadenopathy noted (in neck, axilla or inguinal nodes) Resp: Effort & Inspection: normal respiratory effort Auscultation: clear to auscultation bilaterally Cardio: Rate: regular rate Rhythm: regular rhythm Heart sounds: S1 normal heart sound present and S2 normal heart sound present GI: Other: ABD: Soft, nontender, nondistended. Painful in RLQ, remote from McBurney's point. No guarding or rebound tenderness. No hepatosplenomegaly. : General: Yes no CVA tenderness Other: External genitalia: normal female hair distribution, with
--- NOTE | 2023-05-31 12:28 | WPDHPUPDATE1 ---
History and Physical Update Update Date/Time: 05/31/23 12:28 History and Physical has been reviewed, including an updated exam of the patient. There are NO changes in the patient's condition. Risks, benefits, and alternatives have been discussed and questions answered. Patient agrees to proceed with procedure.
--- NOTE | 2023-05-31 13:27 | W.PM.PROC2 ---
Procedure Note - Detailed Date of Procedure 05/31/23 Pre-op Diagnosis Rt Ovarian Cyst, Pelvic Pain Post-op Diagnosis Other (Right ovarian torsion; pelvic pain) Procedure Performed Laparoscopic right oophorectomy Surgeon Constantin Naranjo MD Anesthesia General Findings The uterus and bilateral Fallopian tubes were surgically absent. The vermiform appendix was surgically absent. The left ovary was normal-appearing, with a fairly broad-based infundibulopelvic ligament. The right ovary was normal appearing, but torsion of the relatively narrow infundibulopelvic ligament was noted. Description of Procedure The patient was taken to the operating room where general endotracheal anesthesia was administered. She was prepared and draped in the usual sterile fashion in the dorsal lithotomy position. The bladder was drained with Michelle catheter. A sponge stick was placed in the vagina to aid in manipulation of the vaginal cuff. Gloves were changed and attention was turned to the abdomen. An infraumbilical skin incision was made with a scalpel. The abdomen was tented and a 5 millimeter bladeless trocar trocar was advanced under direct laparoscopic visualization. Pneumoperitoneum was administered using carbon dioxide gas. A survey of the pelvis and abdomen yielded the findings noted above. A 5 mm port was placed in the right lower quadrant, and a 10 mm port in the left, both using bladeless trocars under direct visualization. The right ovary was elevated and the ureter visualized. The infundibulopelvic ligament was clamped, ligated and transected using Ligasure. The specimen was placed in a bag and withdrawn. The pedicle showed good hemostasis. The Denzel cone was used to pass a single interrupted suture of 0-vicryl to reapproximate the fascia at the LLQ incision. Ports were withdrawn and the gas was allowed to escape. The skin incisions were reapproximated using 4-0 Vicryl in interrupted subcuticular fashion. Dermaflex was applied externally. The vaginal sponge stick was withdrawn and hemostasis was excellent here as well. Sponge, lap, needle and instrument counts were correct. The Michelle catheter was removed. The patient was awakened and taken to recovery in stable condition. I was present and scrubbed through the entire procedure. Estimated Blood Loss 5 Drains No Packing No Pathology Yes (Right ovary) Complications None Condition Stable Disposition PACU
[2023-05-31] MEDS: fentaNYL CITRATE INJ (*CRX) 100 MCG/2 ML VIAL 25 MCG IV PUSH ×4 (13:33→13:49)
[2023-05-31] MEDS: oxyCODONE HCL (*CRX) 5 MG TAB IR PO (14:46)
== END 2023-05-31 15:25 | disposition home or self-care (01) ==
PROVIDERS: PCP Nurse Practitioner Family; Visit Provider Obstetrics & Gynecology
PROC: (CPT 49320; principal; 2023-05-31 12:00)
DX: D27.0 Benign neoplasm of right ovary (principal); N83.511 Torsion of right ovary and ovarian pedicle; I47.10 Supraventricular tachycardia, unspecified; E78.5 Hyperlipidemia, unspecified; F41.9 Anxiety disorder, unspecified; F32.A Depression, unspecified; F17.290 Nicotine dependence, other tobacco product, uncomplicated; F12.90 Cannabis use, unspecified, uncomplicated; E66.9 Obesity, unspecified; Z68.30 Body mass index [BMI] 30.0-30.9, adult
CPT/HCPCS: 58661; 88305; A9270; J1100; J1596; J1885; J2250; J2405; J2704; J2710; J3010; J7120

== ENCOUNTER 2024-08-06 12:59 | Outpatient (CLI) | payer BC, SELFPAY ==
--- NOTE | ~2024-08-06 | US_ITS ---
EXAM: PELVIC ULTRASOUND HISTORY: Pain . Left-sided pelvic pain COMPARISON: 04/08/2022. Reference is also made to the CT examination of the abdomen and pelvis dated 10/29/2020 FINDINGS: UTERUS: Surgically absent. RIGHT OVARY: Surgically absent. LEFT OVARY: The left ovary is unremarkable in echogenicity and size measuring 2.5 x 1.7 x 2.0cm Dopplerable flow is identified. No free fluid is identified within the pelvis. IMPRESSION: Unremarkable sonographic evaluation of the left ovary, as detailed above. No Valsalva images are submitted. However, on the CT examination performed in 2020, an enlarged left gonadal vein was visualized, along with multiple varicosities within the left hemipelvis, findings suggestive of pelvic congestion synd brain, for which clinical correlation is needed, as this may be the source of patient's left-sided pel gorge pain. Thank you for the opportunity to assist in the care of your patient. For questions or concerns regarding this interpretation, please reach out to me directly at . Reviewed, dictated and finalized at location A. IMPRESSION: Unremarkable sonographic evaluation of the left ovary, as detailed above. No Valsalva images are submitted. However, on the CT examination performed in 2020, an enlarged left gonadal vein was visualized, along with multiple varicosities within the left hemipelvis, f indings suggestive of pelvic congestion syndrome, for which clinical correlatio n is needed, as this may be the source of patient's left-sided pelvic pain. Thank you for the opportunity to assist in the care of your patient. For questions or concerns regarding this interpretation, please reach out to me directly at [phone].
== END 2024-08-06 13:00 | disposition home or self-care (01) ==
LOC: MICIMG 13:00
PROVIDERS: PCP Nurse Practitioner Family; Visit Provider Obstetrics & Gynecology
DX: R10.2 Pelvic and perineal pain (principal)
CPT/HCPCS: 76830; 76856